=== PATIENT | female | born 1990 | race American Indian/Alaskan Native ===

== ENCOUNTER 2021-04-22 11:37 | Outpatient (CLI) | payer OTHER ==
[2021-04-22] MEDS ORDERED: DIALYVITE 800-1 EACH PO (14:18)
== END 2021-04-22 12:22 | disposition home or self-care (01) ==
LOC: NST 11:37
PROVIDERS: ATTEND Obstetrics & Gynecology Maternal & Fetal Medicine
DX: Z34.83 Encounter for supervision of other normal pregnancy, third trimester (principal)

== ENCOUNTER 2021-04-22 13:19 | Inpatient (IN) | payer OTHER ==
[~2021-04-22] VITALS: Ht 157.5 cm; Wt 78.0 kg
[2021-04-22] MEDS ORDERED: DIALYVITE 800-1 EACH PO (14:18)
== END 2021-04-24 09:16 | disposition home or self-care (01) | DRG 833 ==
LOC: LDR 13:19 → OB/GYN 13:19
PROVIDERS: ADMIT Obstetrics & Gynecology Maternal & Fetal Medicine; ATTEND Obstetrics & Gynecology Maternal & Fetal Medicine
PROC: 4A1HXFZ Monitoring of Products of Conception, Cardiac Rhythm, External Approach (ICD-10-PCS; principal; 2021-04-22)
DX: O47.03 False labor before 37 completed weeks of gestation, third trimester (principal); O40.3XX0 Polyhydramnios, third trimester, not applicable or unspecified; O24.419 Gestational diabetes mellitus in pregnancy, unspecified control; Z3A.34 34 weeks gestation of pregnancy
CPT/HCPCS: 240

== ENCOUNTER 2021-04-26 06:28 | Inpatient (IN) | payer OTHER ==
[~2021-04-26] VITALS: Ht 157.5 cm; Wt 2.7 kg
[~2021-04-26 06:28] MED LIST: DIALYVITE 800-1 EACH PO
[2021-04-28] MEDS ORDERED: NIFEDIPINE ER60 M1 (08:03)
== END 2021-04-28 09:49 | disposition home or self-care (01) | DRG 807 ==
LOC: LDR 06:28 → OB/GYN 18:00
PROVIDERS: ADMIT Obstetrics & Gynecology Maternal & Fetal Medicine; ATTEND Obstetrics & Gynecology Maternal & Fetal Medicine
PROC: 10E0XZZ Delivery of Products of Conception, External Approach (ICD-10-PCS; principal; 2021-04-26)
PROC: 0KQM0ZZ Repair Perineum Muscle, Open Approach (ICD-10-PCS; 2021-04-26)
PROC: 0W8NXZZ Division of Female Perineum, External Approach (ICD-10-PCS; 2021-04-26)
PROC: 4A1HXFZ Monitoring of Products of Conception, Cardiac Rhythm, External Approach (ICD-10-PCS; 2021-04-26)
DX: O24.420 Gestational diabetes mellitus in childbirth, diet controlled (principal); O70.1 Second degree perineal laceration during delivery; Z37.0 Single live birth; Z3A.39 39 weeks gestation of pregnancy; Z20.822 Contact with and (suspected) exposure to COVID-19

== ENCOUNTER 2025-02-01 13:15 | Emergency (ER) | payer OTHER ==
[~2025-02-01] VITALS: Ht 157.5 cm; Wt 72.1 kg
[~2025-02-01 13:15] MED LIST changes: +NIFEDIPINE ER60 M1
[2025-02-01] MEDS ORDERED: 0.9 % SODIUM CHLORIDE 500 ML IV ONE (14:30)
[2025-02-01] MEDS ORDERED: CEFTRIAXONE SODIUM 2,000 MG VIAL IV ONE (14:30)
[2025-02-01] MEDS ORDERED: CEFTRIAXONE SODIUM 2,000 MG VIAL ONE (14:53)
[2025-02-01 15:14] LABS: BASO % 0.7 % (0.1-1.2); EOS # 0.14 (0.04-0.54); EOS % 1.5 % (0.7-7.0); LYMPH # 1.77 (1.18-3.74); LYMPH % 19.2 % (19.3-53.1); MEAN PLATELET VOLUME 11.50 fl (9.4-12.4); MONO # 0.69 (0.24-0.82); MONO % 7.5 % (4.7-12.5); NEUT # 6.52 (1.56-6.13); NEUT % 70.9 % (34.0-71.1); RED CELL DISTRIBUTION WIDTH 13.1 % (11.6-14.4)
[2025-02-01 15:25] LABS: ALT/SGPT 23.0 U/L (12-78); AST/SGOT 17.0 U/L (15-37); BILIRUBIN TOTAL 0.88 mg/dL (0.3-1.2); BUN CREA RATIO 15.0 (7.0-25.0); CREATININE SERUM 0.75 mg/dL (0.55-1.02); GFR 89.55; GLOBULINA 4.2 G/DL (2.4-3.5); GLUCOSE FASTING 82.0 mg/dL (65-100); OSMOLALITY SERUM 282.0 MOSM/KG (275-295)
[2025-02-01 15:27] LABS: INR 1.01
[2025-02-01] MEDS ORDERED: CLEOCIN HCL300 MG PO (17:48)
[2025-02-01] MEDS ORDERED: INTESTINEX680 M1 PO (17:48)
== END 2025-02-01 19:02 ==
LOC: ER 13:29
PROVIDERS: Preventive Medicine Public Health & General Preventive Medicine
DX: L03.213 Periorbital cellulitis (principal); R59.0 Localized enlarged lymph nodes